=== PATIENT | female | born 1980 | race Caucasian/White ===

== ENCOUNTER → 2016-09-09 | Outpatient (CLI) | payer OTHER ==
--- NOTE | 2016-09-09 16:16 | Diagnostic Imaging Report ---
EXAMINATION: Bilateral breast diagnostic mammogram with a Computer Aided Detection (CAD) system. INDICATION: Lump in the upper outer aspect of the right breast. Left breast pain. COMPARISON: 02/03/2012. FINDINGS: The breasts are composed of extremely dense parenchyma which would decrease mammographic sensitivity. A focal compression view at the site of palpable abnormality in the upper aspect of the right breast demonstrates no definitive underlying mass. Scattered benign-appearing calcifications are seen. IMPRESSION: Extremely dense breasts with no definite underlying lesion. The ultrasound evaluation is pending. ACR BI-RADS Category 0: Incomplete. (Needs additional imaging evaluation). Result letter will be mailed to the patient. Note: At least 10% of breast cancer is not imaged by mammography. Dictated by: Dictated on workstation # [id number]
--- NOTE | 2016-09-09 16:17 | Diagnostic Imaging Report ---
EXAMINATION: Bilateral breast ultrasound. INDICATION: Pain in the left axilla and lump at the 10 o'clock zone of the right breast. FINDINGS: The area of left breast pain in the axillary region was scanned with no underlying abnormality. The area of lump in the right breast at the 10 o'clock zone was also scanned with the surrounding area with no underlying abnormality. IMPRESSION: Negative study. Clinical followup is recommended. ACR BI-RADS Category 1: Negative. Dictated by: Dictated on workstation # [id number]
== END ==
LOC: RAD 09:16
PROVIDERS: ATTEND Specialist
DX: N63 Unspecified lump in breast (principal); M79.622 Pain in left upper arm
CPT/HCPCS: 76642; 77066